=== PATIENT | female | born 1955 | race Asian ===

== ENCOUNTER 2017-02-10 13:15 | Inpatient (IN) | payer OTHER ==
[~2017-02-10] VITALS: Ht 165.1 cm; Wt 60.4 kg
[~2017-02-10 13:15] MED LIST: AMLO5TAB4 PO; AMOX1TAB12 PO; ASPI-621 PO; ATOR10TA PO; LEVO500T8 PO; SIMV10TA3 PO; ZOLP5TAB6 PO
[2017-02-10] MEDS ORDERED: MEROPENEM 1 GM in SODIUM CHLORIDE 0.9% 100 ML IV ONE (16:00)
[2017-02-10] MEDS ORDERED: HYDROcodone/APAP 5/325 TABLET PO PRN (16:30)
[2017-02-10] MEDS ORDERED: GUAIFENESIN/DM 200-20MG, 10ML UDC PO PRN (16:30)
[2017-02-10] MEDS ORDERED: DOCUSATE 100 MG CAPSULE PO PRN (16:30)
[2017-02-10] MEDS ORDERED: MORPHINE SULFATE 4 MG/ML, 1ML IVPush PRN (16:30)
[2017-02-10] MEDS ORDERED: ONDANSETRON 2MG/ML, 2ML IVP PRN (16:30)
[2017-02-10 16:32] LABS: BLOOD UREA NITROGEN 16 mg/dL (7-18)
[2017-02-10 16:35] LABS: HEMOGLOBIN 12.5 g/dL (11.7-16.4)
[2017-02-10] MEDS ORDERED: POTASSIUM CHLORIDE 20 MEQ TAB.ER.PRT PO ONE (17:00)
[2017-02-10] MEDS ORDERED: ENOXAPARIN 40 MG/0.4 ML ONE (17:01)
[2017-02-10] MEDS ORDERED: POTASSIUM CHLORIDE 20 MEQ TAB.ER.PRT ONE (17:01)
[2017-02-10] MEDS: ENOXAPARIN 40 MG/0.4 ML SQ SCH (17:07)
[2017-02-10 18:00] VITALS: BP 128/77
[2017-02-10] MEDS ORDERED: LORazepam 2 MG/ML, 1ML IVPush PRN (18:30)
[2017-02-10] MEDS: ACETAMINOPHEN 325 MG TABLET PO PRN (19:49)
[2017-02-10 20:00] VITALS: BP 128/77
[2017-02-10] MEDS ORDERED: ERTAPENEM 1 GM in SODIUM CHLORIDE 0.9% 50 ML IV SCH (20:00)
[2017-02-10 20:09] VITALS: BP 167/83
[2017-02-10] MEDS: AMLODIPINE 5 MG TABLET PO SCH (21:06)
[2017-02-10] MEDS: FAMOTIDINE 20 MG TABLET PO SCH (21:07)
[2017-02-10] MEDS: ZOLPIDEM 5MG TABLET PO SCH (21:07)
[2017-02-10] MEDS: SIMVASTATIN 10 MG TABLET PO SCH (21:07)
[2017-02-11 04:02] VITALS: BP 115/70
[2017-02-11 05:28] LABS: HEMOGLOBIN 11.3 g/dL (11.7-16.4)
[2017-02-11 05:41] LABS: BLOOD UREA NITROGEN 16 mg/dL (7-18)
[2017-02-11] MEDS ORDERED: POTASSIUM CHLORIDE 20 MEQ TAB.ER.PRT PO ONE (07:30)
[2017-02-11 07:43] VITALS: BP 123/79
[2017-02-11] MEDS: ASPIRIN 81 MG TABLET EC PO SCH (08:52)
[2017-02-11] MEDS: FAMOTIDINE 20 MG TABLET PO SCH ×2 (08:52→20:36)
[2017-02-11] MEDS: AMLODIPINE 5 MG TABLET PO SCH ×2 (08:52→20:36)
[2017-02-11] MEDS: PHENAZOPYRIDINE 200 MG TABLET PO SCH ×3 (09:00→20:36)
[2017-02-11 14:08] VITALS: BP 99/62
[2017-02-11] MEDS: POTASSIUM CHLORIDE 20 MEQ TAB.ER.PRT PO SCH (15:55)
[2017-02-11] MEDS: ENOXAPARIN 40 MG/0.4 ML SQ SCH (15:56)
[2017-02-11 19:26] VITALS: BP 123/75
[2017-02-11] MEDS ORDERED: ERTAPENEM 1 GM in SODIUM CHLORIDE 0.9% 50 ML IV ONE (20:00)
[2017-02-11] MEDS: SIMVASTATIN 10 MG TABLET PO SCH (20:35)
[2017-02-11] MEDS: ZOLPIDEM 5MG TABLET PO SCH (20:37)
[2017-02-12 01:59] VITALS: BP 103/64
[2017-02-12 06:01] LABS: BLOOD UREA NITROGEN 15 mg/dL (7-18)
[2017-02-12 07:59] VITALS: BP 131/77
[2017-02-12] MEDS: ASPIRIN 81 MG TABLET EC PO SCH (09:58)
[2017-02-12] MEDS: FAMOTIDINE 20 MG TABLET PO SCH ×2 (09:59→20:18)
[2017-02-12] MEDS: PHENAZOPYRIDINE 200 MG TABLET PO SCH ×3 (09:59→20:22)
[2017-02-12] MEDS: AMLODIPINE 5 MG TABLET PO SCH ×2 (09:59→20:18)
[2017-02-12] MEDS ORDERED: PICC FLUSH PROTOCOL XX SCH (11:30)
[2017-02-12 13:50] VITALS: BP 130/73
[2017-02-12] MEDS ORDERED: PHEN-494 PO (14:32)
[2017-02-12] MEDS ORDERED: ERTA1VIA IV (14:32)
[2017-02-12] MEDS: ENOXAPARIN 40 MG/0.4 ML SQ SCH (16:30)
[2017-02-12] MEDS: POTASSIUM CHLORIDE 20 MEQ TAB.ER.PRT PO SCH (18:25)
[2017-02-12] MEDS: ACETAMINOPHEN 325 MG TABLET PO PRN ×2 (18:37→22:51)
[2017-02-12 19:54] VITALS: BP 146/85
[2017-02-12] MEDS: ERTAPENEM 1 GM in SODIUM CHLORIDE 0.9% 50 ML IV SCH (20:18)
[2017-02-12] MEDS: SIMVASTATIN 10 MG TABLET PO SCH (20:18)
[2017-02-12] MEDS: ZOLPIDEM 5MG TABLET PO SCH (20:18)
[2017-02-13 01:16] VITALS: BP 117/66
[2017-02-13 08:06] VITALS: BP 136/83
[2017-02-13] MEDS: FAMOTIDINE 20 MG TABLET PO SCH ×2 (09:50→20:25)
[2017-02-13] MEDS: AMLODIPINE 5 MG TABLET PO SCH ×2 (09:51→20:25)
[2017-02-13] MEDS: ASPIRIN 81 MG TABLET EC PO SCH (09:51)
[2017-02-13] MEDS: PHENAZOPYRIDINE 200 MG TABLET PO SCH ×3 (09:51→20:25)
[2017-02-13 14:38] VITALS: BP 136/74
[2017-02-13] MEDS: ENOXAPARIN 40 MG/0.4 ML SQ SCH (14:39)
[2017-02-13] MEDS: POTASSIUM CHLORIDE 20 MEQ TAB.ER.PRT PO SCH (18:44)
[2017-02-13 19:57] VITALS: BP 128/79
[2017-02-13] MEDS: ZOLPIDEM 5MG TABLET PO SCH (20:24)
[2017-02-13] MEDS: ERTAPENEM 1 GM in SODIUM CHLORIDE 0.9% 50 ML IV SCH (20:24)
[2017-02-13] MEDS: SIMVASTATIN 10 MG TABLET PO SCH (20:25)
[2017-02-13] MEDS: ACETAMINOPHEN 325 MG TABLET PO PRN (22:04)
[2017-02-14 03:24] VITALS: BP 129/82
[2017-02-14 07:42] VITALS: BP 125/75
[2017-02-14] MEDS: AMLODIPINE 5 MG TABLET PO SCH (08:47)
[2017-02-14] MEDS: ASPIRIN 81 MG TABLET EC PO SCH (08:47)
[2017-02-14] MEDS: PHENAZOPYRIDINE 200 MG TABLET PO SCH (08:47)
[2017-02-14] MEDS: FAMOTIDINE 20 MG TABLET PO SCH (08:48)
[2017-02-14] MEDS: ACETAMINOPHEN 325 MG TABLET PO PRN (10:22)
[2017-02-14] MEDS ORDERED: ERTAPENEM 1 GM in SODIUM CHLORIDE 0.9% 50 ML IV SCH (13:00)
== END 2017-02-14 15:55 | disposition home or self-care (01) | DRG 872 ==
LOC: ED 16:14 → EDIP 16:15 → ED 17:20 → 3NE 18:05
PROVIDERS: ADMIT Hospitalist; ATTEND Hospitalist
PROC: 0T9B70Z Drainage of Bladder with Drainage Device, Via Natural or Artificial Opening (ICD-10-PCS; 2017-02-10)
PROC: 02HV33Z Insertion of Infusion Device into Superior Vena Cava, Percutaneous Approach (ICD-10-PCS; principal; 2017-02-12)
PROC: B5181ZA Fluoroscopy of Superior Vena Cava using Low Osmolar Contrast, Guidance (ICD-10-PCS; 2017-02-12)
PROC: B548ZZA Ultrasonography of Superior Vena Cava, Guidance (ICD-10-PCS; 2017-02-12)
DX: A41.9 Sepsis, unspecified organism (principal); N12 Tubulo-interstitial nephritis, not specified as acute or chronic; I10 Essential (primary) hypertension; E87.6 Hypokalemia; E78.5 Hyperlipidemia, unspecified; N32.89 Other specified disorders of bladder; B96.20 Unspecified Escherichia coli [E. coli] as the cause of diseases classified elsewhere; Z16.12 Extended spectrum beta lactamase (ESBL) resistance; Z85.3 Personal history of malignant neoplasm of breast; Z86.73 Personal history of transient ischemic attack (TIA), and cerebral infarction without residual deficits; Z90.12 Acquired absence of left breast and nipple
CPT/HCPCS: 36415; 36569; 76937; 77001; 80048; 80076; 81003; 82040; 83690; 85025; 85651; 86140; 99285; J1335; J1650; C1751

== ENCOUNTER 2017-06-06 07:46 | Emergency (ER) | payer OTHER ==
[~2017-06-06] VITALS: Ht 165.1 cm; Wt 64.0 kg
[~2017-06-06 07:46] MED LIST changes: +ERTA1VIA IV; +PHEN-494 PO
[2017-06-06] MEDS ORDERED: SODIUM CHLORIDE 0.9% 1,000 ML IV ONE (08:12)
[2017-06-06] MEDS ORDERED: LOSA25TA5 PO (08:14)
[2017-06-06] MEDS ORDERED: ASPIRIN 81 MG TABLET CHEW PO ONE (08:30)
[2017-06-06] MEDS ORDERED: SODIUM CHLORIDE FLUSH 10ML SYR IVF ONE (08:30)
[2017-06-06 08:37] VITALS: BP 109/55
[2017-06-06] MEDS ORDERED: ASPIRIN 81 MG TABLET CHEW ONE (08:42)
[2017-06-06 08:49] LABS: BLOOD UREA NITROGEN 7 mg/dL (7-18)
[2017-06-06 08:54] LABS: IS PT STATUS REG ER OR PRE ER? YES
== END 2017-06-06 11:28 | disposition home or self-care (01) ==
LOC: ED 08:04
DX: R53.1 Weakness (principal); E87.1 Hypo-osmolality and hyponatremia; I10 Essential (primary) hypertension; Z86.73 Personal history of transient ischemic attack (TIA), and cerebral infarction without residual deficits; E87.6 Hypokalemia
CPT/HCPCS: 36415; 71020; 80048; 81003; 82040; 84436; 84443; 84484; 85025; 93005; 96360; 96361; 99285; J7030

== ENCOUNTER 2017-07-08 02:37 | Emergency (ER) | payer OTHER ==
[~2017-07-08] VITALS: Ht 165.1 cm; Wt 65.9 kg
[~2017-07-08 02:37] MED LIST changes: +LOSA25TA5 PO
[2017-07-08] MEDS ORDERED: BENZ100C4 PO (03:01)
[2017-07-08 03:18] LABS: PATH.CAST-FLAG NOT PRESENT; SPERM-FLAG NOT PRESENT; SRC-FLAG NOT PRESENT; XTAL-FLAG NOT PRESENT; YLC-FLAG NOT PRESENT
[2017-07-08] MEDS ORDERED: DEXTROMETHORPHAN 30 MG/5 ML ORAL SOL PO PRN (03:30)
[2017-07-08 04:23] VITALS: BP 108/64
== END 2017-07-08 04:25 | disposition home or self-care (01) ==
LOC: ED 02:51
DX: J02.8 Acute pharyngitis due to other specified organisms (principal); B97.89 Other viral agents as the cause of diseases classified elsewhere; N30.00 Acute cystitis without hematuria; I10 Essential (primary) hypertension
CPT/HCPCS: 71020; 81001; 87086; 93005; 99285

== ENCOUNTER 2017-07-09 22:14 | Inpatient (IN) | payer OTHER ==
[~2017-07-09] VITALS: Ht 165.1 cm; Wt 64.2 kg
[~2017-07-09 22:14] MED LIST changes: +BENZ100C17 PO; -PHEN-494 PO; +PHEN-583 PO
[2017-07-09] MEDS ORDERED: ONDANSETRON 2MG/ML, 2ML ONE (23:09)
[2017-07-09 23:21] LABS: HEMATOCRIT 27.3 % (34.6-47.8); HEMOGLOBIN 9.1 g/dL (11.7-16.4); WHITE BLOOD COUNT 12.6 x10^3/uL (3.4-10)
[2017-07-09] MEDS ORDERED: SODIUM CHLORIDE 0.9% 1,000ML IVBOLUS ONE (23:30)
[2017-07-09] MEDS ORDERED: ONDANSETRON 2MG/ML, 2ML IVPush ONE (23:30)
[2017-07-09 23:34] LABS: BLOOD UREA NITROGEN 8 mg/dL (7-18)
[2017-07-09 23:39] LABS: ASPARTATE AMINO TRANSFERASE 36 U/L (15-37)
[2017-07-09 23:48] LABS: IS PT STATUS REG ER OR PRE ER? YES
[2017-07-10] MEDS ORDERED: OMNIPAQUE 350 MG/ML, 100ML BOTTLE ONE (00:43)
[2017-07-10 01:11] LABS: PATH.CAST-FLAG NOT PRESENT; SPERM-FLAG NOT PRESENT; SRC-FLAG NOT PRESENT; XTAL-FLAG NOT PRESENT; YLC-FLAG NOT PRESENT
[2017-07-10] MEDS ORDERED: ONDANSETRON 2MG/ML, 2ML IVPush PRN (02:00)
[2017-07-10] MEDS ORDERED: MORPHINE SULFATE 4 MG/ML, 1ML IVPush PRN (02:00)
[2017-07-10 03:12] VITALS: BP 107/68
[2017-07-10] MEDS ORDERED: PROMETHAZINE 25 MG/ML, 1ML IM PRN (05:30)
[2017-07-10] MEDS ORDERED: D5%-0.45NACL+KCL 20MEQ 1,000 ML IV SCH (05:30)
[2017-07-10] MEDS ORDERED: ONDANSETRON 2MG/ML, 2ML IV PRN (05:30)
[2017-07-10] MEDS ORDERED: LORazepam 2 MG/ML, 1ML IV PRN (05:30)
[2017-07-10] MEDS ORDERED: MORPHINE SULFATE 4 MG/ML, 1ML IV PRN (05:30)
[2017-07-10] MEDS ORDERED: hydrALAzine 20 MG/ML, 1ML IV PRN (05:30)
[2017-07-10] MEDS ORDERED: MAGNESIUM HYDROXIDE 8%, 30ML UDC PO PRN (05:30)
[2017-07-10 05:38] LABS: HEMATOCRIT 28.7 % (34.6-47.8); HEMOGLOBIN 9.4 g/dL (11.7-16.4); WHITE BLOOD COUNT 12.3 x10^3/uL (3.4-10)
[2017-07-10 05:53] LABS: BLOOD UREA NITROGEN 6 mg/dL (7-18); TOTAL IRON BINDING CAPACITY 125 mcg/dL (250-450)
[2017-07-10 05:57] LABS: FERRITIN 747.8 ng/mL (8-252)
[2017-07-10] MEDS ORDERED: GADOBUTROL 7.5 MMOL/7.5 ML PFS ONE (07:02)
[2017-07-10 07:30] VITALS: BP 105/67
[2017-07-10 10:19] LABS: POTASSIUM,URINE RANDOM 28 mmol/L
[2017-07-10] MEDS ORDERED: MIDAZOLAM 1 MG/ML, 5ML ONE (11:27)
[2017-07-10] MEDS ORDERED: FENTANYL PF 100 MCG/2ML ONE (11:28)
[2017-07-10] MEDS ORDERED: NALOXONE 1 MG/ML, 2ML ONE (11:28)
[2017-07-10] MEDS ORDERED: OMNIPAQUE 350 MG/ML, 75ML BOTTLE ONE (11:53)
[2017-07-10 13:45] VITALS: BP 100/42
[2017-07-10 18:23] VITALS: BP 101/63
[2017-07-10] MEDS: ACETAMINOPHEN 325 MG TABLET PO PRN (19:39)
[2017-07-11 00:07] VITALS: BP 102/49
[2017-07-11] MEDS ORDERED: D5%-0.45NACL+KCL 20MEQ 1,000 ML IV SCH (05:30)
[2017-07-11 07:03] VITALS: BP 107/62
[2017-07-11] MEDS: ENOXAPARIN 40 MG/0.4 ML SQ SCH (11:59)
[2017-07-11 13:52] VITALS: BP 114/83
[2017-07-11 20:58] VITALS: BP 104/65
[2017-07-12] MEDS: ZOLPIDEM 5MG TABLET PO PRN ×2 (01:24→22:01)
[2017-07-12] MEDS: BENZONATATE 100 MG CAPSULE PO PRN ×3 (01:42→22:01)
[2017-07-12 04:47] LABS: BLOOD UREA NITROGEN 9 mg/dL (7-18)
[2017-07-12 04:55] LABS: HEMATOCRIT 24.2 % (34.6-47.8); HEMOGLOBIN 8.1 g/dL (11.7-16.4); WHITE BLOOD COUNT 13.7 x10^3/uL (3.4-10)
[2017-07-12 07:41] VITALS: BP 111/72
[2017-07-12] MEDS ORDERED: POTASSIUM CHLORIDE 20 MEQ TAB.ER.PRT PO ONE (08:30)
[2017-07-12] MEDS: MULTIVIT.W/IRON, MINERALS ORAL SOL PO SCH (09:00)
[2017-07-12] MEDS: ENOXAPARIN 40 MG/0.4 ML SQ SCH (10:30)
[2017-07-12 12:57] VITALS: BP 122/72
[2017-07-12] MEDS ORDERED: ONDANSETRON 2MG/ML, 2ML IV PRN (19:30)
[2017-07-12] MEDS ORDERED: LORazepam 2 MG/ML, 1ML IV PRN (19:30)
[2017-07-12] MEDS ORDERED: MORPHINE SULFATE 4 MG/ML, 1ML IV PRN (19:30)
[2017-07-12] MEDS ORDERED: hydrALAzine 20 MG/ML, 1ML IV PRN (19:30)
[2017-07-12] MEDS ORDERED: PROMETHAZINE 25 MG/ML, 1ML IM PRN (19:30)
[2017-07-12] MEDS ORDERED: MAGNESIUM HYDROXIDE 8%, 30ML UDC PO PRN (19:30)
[2017-07-12 19:41] VITALS: BP 124/71
[2017-07-13 03:21] VITALS: BP 97/61
[2017-07-13 04:31] LABS: HEMOGLOBIN 8.3 g/dL (11.7-16.4); WHITE BLOOD COUNT 10.1 x10^3/uL (3.4-10)
[2017-07-13 04:35] LABS: BLOOD UREA NITROGEN 6 mg/dL (7-18)
[2017-07-13 06:52] VITALS: BP 122/69
[2017-07-13] MEDS: ENOXAPARIN 40 MG/0.4 ML SQ SCH (09:47)
[2017-07-13] MEDS: MULTIVIT.W/IRON, MINERALS ORAL SOL PO SCH (09:47)
[2017-07-13] MEDS ORDERED: POTASSIUM CHLORIDE 20 MEQ PACKET PO ONE (10:30)
[2017-07-13] MEDS: BENZONATATE 100 MG CAPSULE PO PRN ×2 (10:31→21:16)
[2017-07-13] MEDS: DOCUSATE 100 MG CAPSULE PO SCH ×2 (11:00→21:00)
[2017-07-13] MEDS: DEXTROMETHORPHAN 30 MG/5 ML ORAL SOL PO PRN ×2 (11:32→23:27)
[2017-07-13] MEDS: PANTOPROZOLE 40MG TABLET PO SCH (11:34)
[2017-07-13] MEDS ORDERED: OMNIPAQUE 350 MG/ML, 100ML BOTTLE ONE (17:11)
[2017-07-13 17:50] VITALS: BP 122/76
[2017-07-13] MEDS: ZOLPIDEM 5MG TABLET PO PRN (21:16)
[2017-07-14 01:50] VITALS: BP 117/71
[2017-07-14 04:59] LABS: HEMATOCRIT 23.8 % (34.6-47.8); HEMOGLOBIN 8.1 g/dL (11.7-16.4); WHITE BLOOD COUNT 10.4 x10^3/uL (3.4-10)
[2017-07-14 05:16] LABS: BLOOD UREA NITROGEN 7 mg/dL (7-18)
[2017-07-14 07:05] VITALS: BP 108/70
[2017-07-14] MEDS ORDERED: SODIUM CHLORIDE 1 GM TABLET PO SCH (09:00)
[2017-07-14] MEDS: PANTOPROZOLE 40MG TABLET PO SCH (09:29)
[2017-07-14] MEDS: MULTIVIT.W/IRON, MINERALS ORAL SOL PO SCH (09:29)
[2017-07-14] MEDS: DOCUSATE 100 MG CAPSULE PO SCH ×2 (09:31→22:01)
[2017-07-14] MEDS: ENOXAPARIN 40 MG/0.4 ML SQ SCH (10:46)
[2017-07-14] MEDS: DEXTROMETHORPHAN 30 MG/5 ML ORAL SOL PO PRN ×2 (11:06→23:43)
[2017-07-14 13:48] VITALS: BP 126/75
[2017-07-14 19:14] VITALS: BP 100/64
[2017-07-14] MEDS: BENZONATATE 100 MG CAPSULE PO PRN (22:02)
[2017-07-14] MEDS: ZOLPIDEM 5MG TABLET PO PRN (23:48)
[2017-07-15] VITALS (8 sets, daily range): BP systolic 93–121; BP diastolic 53–67
[2017-07-15 05:21] LABS: BLOOD UREA NITROGEN 11 mg/dL (7-18); HEMOGLOBIN 7.6 g/dL (11.7-16.4); WHITE BLOOD COUNT 13.3 x10^3/uL (3.4-10)
[2017-07-15 05:22] LABS: HEMATOCRIT 22.3 % (34.6-47.8)
[2017-07-15] MEDS: DOCUSATE 100 MG CAPSULE PO SCH ×2 (09:00→20:17)
[2017-07-15] MEDS: PANTOPROZOLE 40MG TABLET PO SCH (09:18)
[2017-07-15] MEDS: MEGESTROL ORAL.SUSP 40 MG/ML PO SCH (09:18)
[2017-07-15] MEDS: BENZONATATE 100 MG CAPSULE PO PRN ×2 (09:19→20:16)
[2017-07-15] MEDS: MULTIVIT.W/IRON, MINERALS ORAL SOL PO SCH (09:20)
[2017-07-15] MEDS ORDERED: ACETAMINOPHEN 325 MG TABLET PO ONE (10:00)
[2017-07-15] MEDS ORDERED: DIPHENHYDRAMINE 50 MG/ML, 1ML IVPush ONE (10:00)
[2017-07-15] MEDS: ENOXAPARIN 40 MG/0.4 ML SQ SCH (10:25)
[2017-07-15] MEDS: DEXTROMETHORPHAN 30 MG/5 ML ORAL SOL PO PRN (13:07)
[2017-07-15] MEDS: ZOLPIDEM 5MG TABLET PO PRN (23:20)
[2017-07-16] MEDS: DEXTROMETHORPHAN 30 MG/5 ML ORAL SOL PO PRN ×2 (00:34→13:10)
[2017-07-16 01:15] VITALS: BP 131/81
[2017-07-16 07:13] LABS: HEMATOCRIT 30.2 % (34.6-47.8); HEMOGLOBIN 10.2 g/dL (11.7-16.4)
[2017-07-16 07:17] LABS: BLOOD UREA NITROGEN 12 mg/dL (7-18)
[2017-07-16 07:19] LABS: FERRITIN 1278.7 ng/mL (8-252)
[2017-07-16 07:57] VITALS: BP 101/63
[2017-07-16] MEDS: PANTOPROZOLE 40MG TABLET PO SCH (08:01)
[2017-07-16] MEDS: MULTIVIT.W/IRON, MINERALS ORAL SOL PO SCH (08:01)
[2017-07-16] MEDS: DOCUSATE 100 MG CAPSULE PO SCH ×2 (08:01→21:45)
[2017-07-16] MEDS: MEGESTROL ORAL.SUSP 40 MG/ML PO SCH (08:02)
[2017-07-16 08:09] LABS: ANISOCYTOSIS 1+; POIKILOCYTOSIS 1+
[2017-07-16] MEDS: ENOXAPARIN 40 MG/0.4 ML SQ SCH ×2 (10:30→10:49)
[2017-07-16] MEDS: BENZONATATE 100 MG CAPSULE PO PRN ×2 (10:49→21:45)
[2017-07-16 14:00] VITALS: BP 132/60
[2017-07-16] MEDS: FERROUS SULFATE 325 MG TABLET PO SCH (17:52)
[2017-07-16 19:00] VITALS: BP 113/74
[2017-07-17] MEDS: ZOLPIDEM 5MG TABLET PO PRN (00:27)
[2017-07-17] MEDS: DEXTROMETHORPHAN 30 MG/5 ML ORAL SOL PO PRN ×2 (00:27→12:56)
[2017-07-17 03:18] VITALS: BP 107/68
[2017-07-17 06:29] LABS: ASPARTATE AMINO TRANSFERASE 23 U/L (15-37); BLOOD UREA NITROGEN 10 mg/dL (7-18); LACTATE DEHYDROGENASE 445 U/L (84-246)
[2017-07-17 06:35] LABS: HIV 1&2 ANTIBODY SCREEN Nonreactive (Nonreactive); HIV-1 p24 ANTIGEN Nonreactive (Nonreactive)
[2017-07-17 07:01] VITALS: BP 104/70
[2017-07-17 08:10] LABS: OCCBLD OBC PASS
[2017-07-17] MEDS ORDERED: LIDOCAINE 1%, 20ML ONE (09:29)
[2017-07-17] MEDS ORDERED: NALOXONE 1 MG/ML, 2ML ONE (09:40)
[2017-07-17] MEDS ORDERED: MIDAZOLAM 1 MG/ML, 5ML ONE (09:40)
[2017-07-17] MEDS ORDERED: FENTANYL PF 100 MCG/2ML ONE (09:40)
[2017-07-17] MEDS ORDERED: FLUMAZENIL 0.1 MG/1 ML, 5ML ONE (09:41)
[2017-07-17] MEDS: DOCUSATE 100 MG CAPSULE PO SCH ×2 (10:51→21:36)
[2017-07-17] MEDS: FERROUS SULFATE 325 MG TABLET PO SCH (10:51)
[2017-07-17] MEDS: BENZONATATE 100 MG CAPSULE PO PRN ×2 (10:51→21:36)
[2017-07-17] MEDS: PANTOPROZOLE 40MG TABLET PO SCH (10:52)
[2017-07-17] MEDS: MEGESTROL ORAL.SUSP 40 MG/ML PO SCH (10:53)
[2017-07-17] MEDS: MULTIVIT.W/IRON, MINERALS ORAL SOL PO SCH (10:53)
[2017-07-17] MEDS: ENOXAPARIN 40 MG/0.4 ML SQ SCH (10:53)
[2017-07-17 13:11] VITALS: BP 115/57
[2017-07-17 20:00] VITALS: BP 109/72
[2017-07-17] MEDS: SIMVASTATIN 10 MG TABLET PO SCH (21:36)
[2017-07-18] MEDS: ZOLPIDEM 5MG TABLET PO PRN ×2 (00:07→23:19)
[2017-07-18] MEDS: DEXTROMETHORPHAN 30 MG/5 ML ORAL SOL PO PRN ×3 (00:08→23:19)
[2017-07-18 04:41] VITALS: BP 114/73
[2017-07-18 04:45] LABS: BLOOD UREA NITROGEN 12 mg/dL (7-18)
[2017-07-18 04:46] LABS: HEMATOCRIT 27.9 % (34.6-47.8); HEMOGLOBIN 9.5 g/dL (11.7-16.4); WHITE BLOOD COUNT 12.6 x10^3/uL (3.4-10)
[2017-07-18 07:07] LABS: HEPATITIS B SURFACE AG SCREEN Negative (Negative)
[2017-07-18 08:17] VITALS: BP 106/54
[2017-07-18] MEDS ORDERED: ASPIRIN 81 MG TABLET EC PO SCH (09:00)
[2017-07-18] MEDS: MULTIVIT.W/IRON, MINERALS ORAL SOL PO SCH (09:00)
[2017-07-18] MEDS: DOCUSATE 100 MG CAPSULE PO SCH (09:00)
[2017-07-18] MEDS ORDERED: MAGNESIUM SULFATE PMX 2GM/50ML 50 ML IV ONE (09:30)
[2017-07-18] MEDS: BENZONATATE 100 MG CAPSULE PO PRN ×2 (10:17→21:09)
[2017-07-18] MEDS: FERROUS SULFATE 325 MG TABLET PO SCH (10:17)
[2017-07-18] MEDS: MEGESTROL ORAL.SUSP 40 MG/ML PO SCH (10:17)
[2017-07-18] MEDS: PANTOPROZOLE 40MG TABLET PO SCH (10:17)
[2017-07-18] MEDS: ENOXAPARIN 40 MG/0.4 ML SQ SCH (10:30)
[2017-07-18] MEDS ORDERED: LIDOCAINE 1%, 20ML ONE (11:02)
[2017-07-18 13:30] VITALS: BP 123/82
[2017-07-18] MEDS ORDERED: DOCUSATE 100 MG CAPSULE PO PRN (16:30)
[2017-07-18 20:03] VITALS: BP 126/81
[2017-07-18] MEDS: SIMVASTATIN 10 MG TABLET PO SCH (21:09)
[2017-07-19 01:23] VITALS: BP 119/57
[2017-07-19 05:14] LABS: HEMATOCRIT 27.8 % (34.6-47.8); HEMOGLOBIN 9.1 g/dL (11.7-16.4); WHITE BLOOD COUNT 13.7 x10^3/uL (3.4-10)
[2017-07-19 05:26] LABS: BLOOD UREA NITROGEN 12 mg/dL (7-18)
[2017-07-19 07:14] VITALS: BP 111/70
[2017-07-19] MEDS: PANTOPROZOLE 40MG TABLET PO SCH (09:01)
[2017-07-19] MEDS: FERROUS SULFATE 325 MG TABLET PO SCH (09:01)
[2017-07-19] MEDS: MEGESTROL ORAL.SUSP 40 MG/ML PO SCH (09:01)
[2017-07-19] MEDS: MULTIVITAMIN 1 TABLET PO SCH (09:01)
[2017-07-19] MEDS: BENZONATATE 100 MG CAPSULE PO PRN ×2 (09:01→21:21)
[2017-07-19] MEDS: ENOXAPARIN 40 MG/0.4 ML SQ SCH (10:30)
[2017-07-19] MEDS: DEXTROMETHORPHAN 30 MG/5 ML ORAL SOL PO PRN ×2 (11:55→23:25)
[2017-07-19 13:25] VITALS: BP 144/51
[2017-07-19] MEDS ORDERED: DOCUSATE 100 MG CAPSULE PO PRN (15:30)
[2017-07-19] MEDS ORDERED: hydrALAzine 20 MG/ML, 1ML IV PRN (15:30)
[2017-07-19] MEDS ORDERED: PROMETHAZINE 25 MG/ML, 1ML IM PRN (15:30)
[2017-07-19] MEDS ORDERED: ONDANSETRON 2MG/ML, 2ML IV PRN (15:30)
[2017-07-19 20:00] VITALS: BP 140/80
[2017-07-19 21:18] VITALS: BP 139/73
[2017-07-19] MEDS: SIMVASTATIN 10 MG TABLET PO SCH (21:21)
[2017-07-19] MEDS: ZOLPIDEM 5MG TABLET PO PRN (23:25)
[2017-07-20 02:00] VITALS: BP 121/71
[2017-07-20 04:21] LABS: BLOOD UREA NITROGEN 11 mg/dL (7-18)
[2017-07-20 07:37] VITALS: BP 124/74
[2017-07-20] MEDS: NYSTATIN 500,000 UNITS/5 ML UDC PO SCH ×4 (07:48→21:49)
[2017-07-20] MEDS: PANTOPROZOLE 40MG TABLET PO SCH (07:48)
[2017-07-20] MEDS: BENZONATATE 100 MG CAPSULE PO PRN ×2 (09:25→21:49)
[2017-07-20] MEDS: FERROUS SULFATE 325 MG TABLET PO SCH (09:25)
[2017-07-20] MEDS: MEGESTROL ORAL.SUSP 40 MG/ML PO SCH (09:25)
[2017-07-20] MEDS: MULTIVITAMIN 1 TABLET PO SCH (09:25)
[2017-07-20] MEDS: ENOXAPARIN 40 MG/0.4 ML SQ SCH (11:10)
[2017-07-20] MEDS: DEXTROMETHORPHAN 30 MG/5 ML ORAL SOL PO PRN ×2 (12:18→23:51)
[2017-07-20 15:08] VITALS: BP 139/72
[2017-07-20] MEDS ORDERED: OMNIPAQUE 350 MG/ML, 100ML BOTTLE ONE (18:33)
[2017-07-20] MEDS: SIMVASTATIN 10 MG TABLET PO SCH (21:49)
[2017-07-20 23:44] VITALS: BP 137/65
[2017-07-20] MEDS: ZOLPIDEM 5MG TABLET PO PRN (23:51)
[2017-07-21 03:18] VITALS: BP 122/72
[2017-07-21 03:53] LABS: BLOOD UREA NITROGEN 10 mg/dL (7-18)
[2017-07-21 07:08] VITALS: BP 110/76
[2017-07-21] MEDS: MULTIVITAMIN 1 TABLET PO SCH (09:08)
[2017-07-21] MEDS: PANTOPROZOLE 40MG TABLET PO SCH (09:08)
[2017-07-21] MEDS: NYSTATIN 500,000 UNITS/5 ML UDC PO SCH ×4 (09:08→20:58)
[2017-07-21] MEDS: FERROUS SULFATE 325 MG TABLET PO SCH (09:09)
[2017-07-21] MEDS: MEGESTROL ORAL.SUSP 40 MG/ML PO SCH (09:09)
[2017-07-21] MEDS: ENOXAPARIN 40 MG/0.4 ML SQ SCH (10:30)
[2017-07-21] MEDS ORDERED: METHOTREXATE/PF 2ML 12 MG in SODIUM CHLORIDE 0.9% 5.52 ML IT ONE (11:00)
[2017-07-21] MEDS: BENZONATATE 100 MG CAPSULE PO PRN ×2 (12:56→21:08)
[2017-07-21] MEDS: DEXTROMETHORPHAN 30 MG/5 ML ORAL SOL PO PRN (13:23)
[2017-07-21 13:34] VITALS: BP 129/73
[2017-07-21] MEDS ORDERED: LIDOCAINE 1%, 20ML ONE (16:41)
[2017-07-21 18:14] LABS: CYTOLOGY BODY FLUID RECD INTO PATHOLOGY; CYTOLOGY BODY FLUID SOURCE CEREBROSPINAL FLUID
[2017-07-21 19:35] VITALS: BP 136/75
[2017-07-21] MEDS: SIMVASTATIN 10 MG TABLET PO SCH (20:58)
[2017-07-22] MEDS: DEXTROMETHORPHAN 30 MG/5 ML ORAL SOL PO PRN ×2 (00:29→23:31)
[2017-07-22 01:16] VITALS: BP 121/74
[2017-07-22] MEDS: ZOLPIDEM 5MG TABLET PO PRN (01:16)
[2017-07-22] MEDS: NYSTATIN 500,000 UNITS/5 ML UDC PO SCH ×4 (06:03→20:52)
[2017-07-22 06:20] LABS: HEMATOCRIT 26.2 % (34.6-47.8); HEMOGLOBIN 8.9 g/dL (11.7-16.4); WHITE BLOOD COUNT 13.6 x10^3/uL (3.4-10)
[2017-07-22 06:32] LABS: ASPARTATE AMINO TRANSFERASE 25 U/L (15-37); BLOOD UREA NITROGEN 11 mg/dL (7-18)
[2017-07-22 07:40] VITALS: BP 118/71
[2017-07-22] MEDS: MULTIVITAMIN 1 TABLET PO SCH (08:08)
[2017-07-22] MEDS: PANTOPROZOLE 40MG TABLET PO SCH (08:08)
[2017-07-22] MEDS: ALLOPURINOL 300 MG TABLET PO SCH (08:08)
[2017-07-22] MEDS: FERROUS SULFATE 325 MG TABLET PO SCH (08:08)
[2017-07-22] MEDS: MEGESTROL ORAL.SUSP 40 MG/ML PO SCH (08:09)
[2017-07-22] MEDS: BENZONATATE 100 MG CAPSULE PO PRN ×2 (09:27→20:52)
[2017-07-22] MEDS ORDERED: FAMOTIDINE 20 MG/2 ML IVPush ONE (10:30)
[2017-07-22] MEDS ORDERED: DEXAMETHASONE 12 MG in SODIUM CHLORIDE 0.9% 50 ML IV ONE (11:00)
[2017-07-22] MEDS ORDERED: DIPHENHYDRAMINE 50 MG/ML, 1ML IVPush ONE (11:00)
[2017-07-22] MEDS ORDERED: ACETAMINOPHEN 325 MG TABLET PO ONE (11:00)
[2017-07-22] MEDS: ENOXAPARIN 40 MG/0.4 ML SQ SCH (11:17)
[2017-07-22] MEDS ORDERED: RITUXIMAB IV ONE (11:30)
[2017-07-22] MEDS ORDERED: SODIUM CHLORIDE 0.9% IV ONE (11:30)
[2017-07-22 14:00] VITALS: BP 106/67
[2017-07-22 20:45] VITALS: BP 125/69
[2017-07-22] MEDS: SIMVASTATIN 10 MG TABLET PO SCH (20:52)
[2017-07-23 00:32] VITALS: BP 135/80
[2017-07-23] MEDS: NYSTATIN 500,000 UNITS/5 ML UDC PO SCH ×4 (05:35→21:25)
[2017-07-23 06:10] LABS: ASPARTATE AMINO TRANSFERASE 39 U/L (15-37); BLOOD UREA NITROGEN 15 mg/dL (7-18)
[2017-07-23 07:30] VITALS: BP 112/52
[2017-07-23 09:11] LABS: HEMATOCRIT 27.2 % (34.6-47.8); HEMOGLOBIN 9.1 g/dL (11.7-16.4); WHITE BLOOD COUNT 15.1 x10^3/uL (3.4-10)
[2017-07-23 09:12] LABS: DIFF TOTAL CELLS COUNTED 100 CELL DIFF
[2017-07-23 09:14] LABS: VERIFY COUNTS? YES
[2017-07-23] MEDS: MULTIVITAMIN 1 TABLET PO SCH (09:56)
[2017-07-23] MEDS: PANTOPROZOLE 40MG TABLET PO SCH (09:56)
[2017-07-23] MEDS: MEGESTROL ORAL.SUSP 40 MG/ML PO SCH (09:56)
[2017-07-23] MEDS: FERROUS SULFATE 325 MG TABLET PO SCH (09:56)
[2017-07-23] MEDS: ALLOPURINOL 300 MG TABLET PO SCH (09:56)
[2017-07-23] MEDS ORDERED: FOSAPREPITANT 150 MG in SODIUM CHLORIDE 0.9% 145 ML IV ONE (10:30)
[2017-07-23] MEDS: ONDANSETRON 16 MG in SODIUM CHLORIDE 0.9% 50 ML IVPB ONE ×2 (10:54→11:55)
[2017-07-23] MEDS: predniSONE 50MG TABLET PO SCH (10:55)
[2017-07-23] MEDS: ENOXAPARIN 40 MG/0.4 ML SQ SCH (10:55)
[2017-07-23] MEDS ORDERED: CYCLOPHOSPHAMIDE IV ONE (11:00)
[2017-07-23] MEDS ORDERED: SODIUM CHLORIDE 0.9% IV ONE ×2 (11:00→13:00)
[2017-07-23] MEDS ORDERED: DOXORUBICIN IVPush ONE (12:00)
[2017-07-23] MEDS ORDERED: VINCRISTINE IV ONE (13:00)
[2017-07-23] MEDS: DEXTROMETHORPHAN 30 MG/5 ML ORAL SOL PO PRN (13:50)
[2017-07-23] MEDS: SODIUM CHLORIDE 0.45% 1,000 ML IV SCH (14:01)
[2017-07-23 14:10] VITALS: BP 118/84
[2017-07-23] MEDS: BENZONATATE 100 MG CAPSULE PO PRN (15:12)
[2017-07-23 18:58] VITALS: BP 149/84
[2017-07-23] MEDS: SIMVASTATIN 10 MG TABLET PO SCH (21:25)
[2017-07-24] MEDS: SODIUM CHLORIDE 0.45% 1,000 ML IV SCH (00:56)
[2017-07-24 01:25] VITALS: BP 156/78
[2017-07-24] MEDS: DEXTROMETHORPHAN 30 MG/5 ML ORAL SOL PO PRN (02:21)
[2017-07-24] MEDS: BENZONATATE 100 MG CAPSULE PO PRN ×2 (02:21→12:37)
[2017-07-24] MEDS: NYSTATIN 500,000 UNITS/5 ML UDC PO SCH ×4 (05:45→21:23)
[2017-07-24 06:30] LABS: ASPARTATE AMINO TRANSFERASE 69 U/L (15-37); BLOOD UREA NITROGEN 17 mg/dL (7-18)
[2017-07-24 07:35] VITALS: BP 133/74
[2017-07-24] MEDS: MULTIVITAMIN 1 TABLET PO SCH (07:51)
[2017-07-24] MEDS: PANTOPROZOLE 40MG TABLET PO SCH (07:51)
[2017-07-24] MEDS: FERROUS SULFATE 325 MG TABLET PO SCH (07:51)
[2017-07-24] MEDS: ALLOPURINOL 300 MG TABLET PO SCH (07:52)
[2017-07-24] MEDS: MEGESTROL ORAL.SUSP 40 MG/ML PO SCH (07:52)
[2017-07-24] MEDS: ENOXAPARIN 40 MG/0.4 ML SQ SCH (10:30)
[2017-07-24] MEDS: predniSONE 50MG TABLET PO SCH (10:31)
[2017-07-24 12:40] VITALS: BP 142/79
[2017-07-24] MEDS: GUAIFENESIN/DM 100-10MG, 5ML UDC PO PRN (15:55)
[2017-07-24] MEDS: DOCUSATE 100 MG CAPSULE PO SCH ×2 (18:37→21:00)
[2017-07-24 19:42] VITALS: BP 154/87
[2017-07-24] MEDS: SIMVASTATIN 10 MG TABLET PO SCH (21:23)
[2017-07-25 00:38] VITALS: BP 149/89
[2017-07-25] MEDS: GUAIFENESIN/DM 100-10MG, 5ML UDC PO PRN (02:55)
[2017-07-25] MEDS: BENZONATATE 100 MG CAPSULE PO PRN ×2 (02:55→23:30)
[2017-07-25] MEDS: NYSTATIN 500,000 UNITS/5 ML UDC PO SCH ×4 (05:06→21:04)
[2017-07-25 06:14] LABS: ASPARTATE AMINO TRANSFERASE 54 U/L (15-37); BLOOD UREA NITROGEN 20 mg/dL (7-18)
[2017-07-25] MEDS: PANTOPROZOLE 40MG TABLET PO SCH (07:54)
[2017-07-25 08:30] VITALS: BP 152/88
[2017-07-25] MEDS: MULTIVITAMIN 1 TABLET PO SCH (09:41)
[2017-07-25] MEDS: DOCUSATE 100 MG CAPSULE PO SCH ×2 (09:41→21:04)
[2017-07-25] MEDS: ALLOPURINOL 300 MG TABLET PO SCH (09:41)
[2017-07-25] MEDS: FERROUS SULFATE 325 MG TABLET PO SCH (09:42)
[2017-07-25] MEDS: MEGESTROL ORAL.SUSP 40 MG/ML PO SCH (09:42)
[2017-07-25] MEDS: predniSONE 50MG TABLET PO SCH (09:44)
[2017-07-25] MEDS: ENOXAPARIN 40 MG/0.4 ML SQ SCH (09:44)
[2017-07-25 12:43] VITALS: BP 148/84
[2017-07-25] MEDS: ACETAMINOPHEN 325 MG TABLET PO PRN (12:48)
[2017-07-25 20:03] VITALS: BP 135/81
[2017-07-25] MEDS: SIMVASTATIN 10 MG TABLET PO SCH (21:04)
[2017-07-26 01:06] VITALS: BP 163/114
[2017-07-26 03:42] VITALS: BP 151/86
[2017-07-26 05:32] LABS: HEMATOCRIT 24.4 % (34.6-47.8); HEMOGLOBIN 8.2 g/dL (11.7-16.4); WHITE BLOOD COUNT 6.8 x10^3/uL (3.4-10)
[2017-07-26 05:40] LABS: ASPARTATE AMINO TRANSFERASE 39 U/L (15-37); BLOOD UREA NITROGEN 23 mg/dL (7-18)
[2017-07-26] MEDS: NYSTATIN 500,000 UNITS/5 ML UDC PO SCH ×2 (05:56→11:03)
[2017-07-26 08:16] VITALS: BP 150/98
[2017-07-26] MEDS ORDERED: TBO-FILGRASTIM 300 MCG/0.5 ML SQ SCH (09:00)
[2017-07-26] MEDS: PANTOPROZOLE 40MG TABLET PO SCH (10:09)
[2017-07-26] MEDS: FERROUS SULFATE 325 MG TABLET PO SCH (10:09)
[2017-07-26] MEDS: DOCUSATE 100 MG CAPSULE PO SCH (10:09)
[2017-07-26] MEDS: ALLOPURINOL 300 MG TABLET PO SCH (10:10)
[2017-07-26] MEDS: MULTIVITAMIN 1 TABLET PO SCH (10:10)
[2017-07-26] MEDS: MEGESTROL ORAL.SUSP 40 MG/ML PO SCH (10:10)
[2017-07-26] MEDS: ENOXAPARIN 40 MG/0.4 ML SQ SCH (11:03)
[2017-07-26] MEDS: predniSONE 50MG TABLET PO SCH (11:03)
[2017-07-26] MEDS ORDERED: BENZ100C17 PO (11:20)
[2017-07-26] MEDS ORDERED: PRED50TA PO (11:20)
[2017-07-26] MEDS ORDERED: MULT1TAB60 PO (11:20)
[2017-07-26] MEDS ORDERED: FERR-36 PO (11:20)
[2017-07-26] MEDS ORDERED: TRAM50TA2 PO (11:20)
[2017-07-26] MEDS ORDERED: DOCU-131 PO (11:20)
[2017-07-26] MEDS ORDERED: MEGE400O2 PO (11:20)
[2017-07-26] MEDS ORDERED: ALLO300T PO (11:20)
[2017-07-26] MEDS ORDERED: TBO-300S SQ (11:20)
[2017-07-26 13:02] VITALS: BP 138/81
== END 2017-07-26 13:55 | disposition home or self-care (01) | DRG 823 ==
LOC: ED 22:35 → EDIP 07-10 01:53 → 4NOR 07-10 05:08 → 3NW 07-11 13:26
PROC: 07BD3ZX Excision of Aortic Lymphatic, Percutaneous Approach, Diagnostic (ICD-10-PCS; principal; 2017-07-10)
PROC: 0QB33ZX Excision of Left Pelvic Bone, Percutaneous Approach, Diagnostic (ICD-10-PCS; 2017-07-17)
PROC: 07DR3ZX Extraction of Iliac Bone Marrow, Percutaneous Approach, Diagnostic (ICD-10-PCS; 2017-07-17)
PROC: 02HV33Z Insertion of Infusion Device into Superior Vena Cava, Percutaneous Approach (ICD-10-PCS; 2017-07-18)
PROC: B5181ZA Fluoroscopy of Superior Vena Cava using Low Osmolar Contrast, Guidance (ICD-10-PCS; 2017-07-18)
PROC: 00JU3ZZ Inspection of Spinal Canal, Percutaneous Approach (ICD-10-PCS; 2017-07-21)
PROC: 009U3ZX Drainage of Spinal Canal, Percutaneous Approach, Diagnostic (ICD-10-PCS; 2017-07-22)
PROC: B01B1ZZ Fluoroscopy of Spinal Cord using Low Osmolar Contrast (ICD-10-PCS; 2017-07-22)
PROC: 30233N1 Transfusion of Nonautologous Red Blood Cells into Peripheral Vein, Percutaneous Approach (ICD-10-PCS; 2017-07-22)
PROC: 3E04305 Introduction of Other Antineoplastic into Central Vein, Percutaneous Approach (ICD-10-PCS; 2017-07-22)
DX: C83.30 Diffuse large B-cell lymphoma, unspecified site (principal); E43 Unspecified severe protein-calorie malnutrition; I71.01 Dissection of thoracic aorta; D69.59 Other secondary thrombocytopenia; E22.2 Syndrome of inappropriate secretion of antidiuretic hormone; I11.9 Hypertensive heart disease without heart failure; K76.0 Fatty (change of) liver, not elsewhere classified; E83.52 Hypercalcemia; N39.0 Urinary tract infection, site not specified; D50.9 Iron deficiency anemia, unspecified; D63.8 Anemia in other chronic diseases classified elsewhere; E78.5 Hyperlipidemia, unspecified; E87.6 Hypokalemia; K59.00 Constipation, unspecified; F51.04 Psychophysiologic insomnia; R62.7 Adult failure to thrive; T38.0X5A Adverse effect of glucocorticoids and synthetic analogues, initial encounter; Z86.73 Personal history of transient ischemic attack (TIA), and cerebral infarction without residual deficits; Z68.23 Body mass index [BMI] 23.0-23.9, adult; Z85.3 Personal history of malignant neoplasm of breast; Z90.12 Acquired absence of left breast and nipple; Z92.3 Personal history of irradiation
CPT/HCPCS: 36415; 36569; 49180; 62270; 70553; 71010; 71260; 71275; 74177; 76937; 77001; 77002; 77012; 78306; 80048; 80053; 80074; 81001; 81003; 82248; 82272; 82436; 82728; 83540; 83550; 83605; 83615; 83690; 83735; 83935; 84133; 84145; 84295; 84300; 84484; 84550; 85025; 85045; 85097; 85379; 85610; 86703; 86704; 86706; 86850; 86900; 86923; 87040; 87340; 87899; 88108; 88237; 88264; 88280; 88305; 88311; 88313; 88341; 88342; 88360; 89051; 93005; 93306; 96361; 96374; 99156; 99157; A9585; G0364; J1100; J1453; J1650; J2250; J2405; J3010; J3490; J9000; J9070; J9250; J9370; Q9967; A9503; C1751; C9898; G0435; G0461; J1200; J1447; J2060; J2310; J3475; J3480; J7030; J7050; J7512; J9310; P9016; S0028

== ENCOUNTER 2017-08-19 10:52 | Day surgery (SDC) | payer OTHER ==
[~2017-08-19] VITALS: Ht 165.1 cm; Wt 67.6 kg
[~2017-08-19 10:52] MED LIST changes: +ALLO300T PO; +DOCU-131 PO; +FERR-36 PO; +MEGE400O2 PO; +MULT1TAB60 PO; +PRED50TA PO; +TBO-300S SQ; +TRAM50TA2 PO
[2017-08-19 11:23] VITALS: BP 160/91
[2017-08-19] MEDS ORDERED: SODIUM CHLORIDE 0.9% 1,000 ML IV SCH (11:23)
[2017-08-19] MEDS ORDERED: CEFAZOLIN PMX 1GM/50ML 50 ML IV ONE (11:30)
[2017-08-19] MEDS ORDERED: LIDOCAINE 1%, 2ML ONE (11:40)
[2017-08-19] MEDS ORDERED: MEGE400O2 PO (11:41)
[2017-08-19] MEDS ORDERED: FERR325T18 PO (11:41)
[2017-08-19] MEDS ORDERED: MULT1TAB60 PO (11:41)
[2017-08-19] MEDS ORDERED: ALLO300T PO (11:41)
[2017-08-19] MEDS ORDERED: METHOTREXATE/PF 2ML 12 MG in SODIUM CHLORIDE 0.9% 5.52 ML IT ONE (12:00)
[2017-08-19] MEDS ORDERED: FENTANYL PF 100 MCG/2ML ONE (12:01)
[2017-08-19] MEDS ORDERED: MIDAZOLAM 1 MG/ML, 5ML ONE (12:01)
[2017-08-19] MEDS ORDERED: FLUMAZENIL 0.1 MG/1 ML, 5ML ONE (12:02)
[2017-08-19] MEDS ORDERED: NALOXONE 1 MG/ML, 2ML ONE (12:02)
[2017-08-19] MEDS ORDERED: LIDOCAINE 1%, 20ML ONE ×2 (12:11→12:24)
[2017-08-19 13:26] LABS: CYTOLOGY BODY FLUID RECD INTO PATHOLOGY; CYTOLOGY BODY FLUID SOURCE CEREBROSPINAL FLUID
== END 2017-08-19 15:45 ==
LOC: OUT 10:52
PROVIDERS: ATTEND Internal Medicine Hematology & Oncology
DX: Z45.2 Encounter for adjustment and management of vascular access device (principal); C85.90 Non-Hodgkin lymphoma, unspecified, unspecified site; D64.9 Anemia, unspecified; I10 Essential (primary) hypertension; Z90.12 Acquired absence of left breast and nipple; Z98.890 Other specified postprocedural states
CPT/HCPCS: 36561; 62270; 76937; 77001; 88108; 99156; 99157; C1788; C1894; J0690; J1642; J2250; J3010; J3490; J7030; J9250; 77002; J2310

== ENCOUNTER 2017-09-09 07:38 | Day surgery (SDC) | payer OTHER ==
[~2017-09-09] VITALS: Ht 165.1 cm; Wt 65.4 kg
[~2017-09-09 07:38] MED LIST changes: +FERR325T18 PO
[2017-09-09 08:10] VITALS: BP 136/75
[2017-09-09] MEDS ORDERED: METHOTREXATE/PF 2ML 12 MG in SODIUM CHLORIDE 0.9% 5.52 ML IT ONE (09:00)
[2017-09-09] MEDS ORDERED: LIDOCAINE 1%, 20ML ONE (09:15)
== END 2017-09-09 13:55 | disposition home or self-care (01) ==
LOC: OUT 07:38
PROVIDERS: ATTEND Internal Medicine Hematology & Oncology
DX: C83.30 Diffuse large B-cell lymphoma, unspecified site (principal); Z90.12 Acquired absence of left breast and nipple; I10 Essential (primary) hypertension
CPT/HCPCS: 62270; J9250; J3490

== ENCOUNTER 2017-09-18 02:33 | Emergency (ER) | payer OTHER ==
[~2017-09-18] VITALS: Ht 165.1 cm; Wt 64.5 kg
[2017-09-18 04:28] VITALS: BP 125/59
== END 2017-09-18 04:32 | disposition home or self-care (01) ==
LOC: ED 04:26
DX: R10.84 Generalized abdominal pain (principal); R63.0 Anorexia; I10 Essential (primary) hypertension; Z86.73 Personal history of transient ischemic attack (TIA), and cerebral infarction without residual deficits; Z85.9 Personal history of malignant neoplasm, unspecified
CPT/HCPCS: 99283

== ENCOUNTER 2017-09-24 21:18 | Emergency (ER) | payer OTHER ==
[~2017-09-24] VITALS: Ht 165.1 cm; Wt 64.8 kg
[2017-09-24 21:19] VITALS: BP 139/82
[2017-09-24] MEDS ORDERED: SODIUM CHLORIDE 0.9% 1,000ML IVBOLUS ONE ×2 (22:00→23:00)
[2017-09-24] MEDS ORDERED: SODIUM CHLORIDE FLUSH 10ML SYR IVF ONE (22:00)
[2017-09-24 22:29] LABS: ASPARTATE AMINO TRANSFERASE 14 U/L (15-37); BLOOD UREA NITROGEN 14 mg/dL (7-18)
[2017-09-24 22:30] LABS: HEMATOCRIT 27.2 % (34.6-47.8); HEMOGLOBIN 9.3 g/dL (11.7-16.4); WHITE BLOOD COUNT 5.9 x10^3/uL (3.4-10)
[2017-09-24 22:50] LABS: DIFF TOTAL CELLS COUNTED 100 CELL DIFF
[2017-09-24 22:59] LABS: VERIFY COUNTS? YES
[2017-09-24 23:00] LABS: ANISOCYTOSIS 1+
[2017-09-24 23:01] LABS: OVALOCYTES 1+; POLYCHROMASIA 1+; TARGET CELLS 1+
== END 2017-09-25 00:01 | disposition home or self-care (01) ==
LOC: ED 21:50
DX: E86.0 Dehydration (principal); C85.90 Non-Hodgkin lymphoma, unspecified, unspecified site; Z51.11 Encounter for antineoplastic chemotherapy; E87.1 Hypo-osmolality and hyponatremia; I10 Essential (primary) hypertension; Z86.73 Personal history of transient ischemic attack (TIA), and cerebral infarction without residual deficits; E78.5 Hyperlipidemia, unspecified
CPT/HCPCS: 36415; 80053; 85025; 93005; 96360; 96361; 99285; J7030

== ENCOUNTER 2017-11-05 07:38 | Day surgery (SDC) | payer OTHER ==
[~2017-11-05] VITALS: Ht 165.1 cm; Wt 65.0 kg
[~2017-11-05 07:38] MED LIST changes: +BENZ-17 PO; -BENZ100C17 PO; +POTA20TA6 PO
[2017-11-05 08:20] VITALS: BP 147/98
[2017-11-05] MEDS ORDERED: METHOTREXATE/PF 2ML 12 MG in SODIUM CHLORIDE 0.9% 5.52 ML IT ONE (09:00)
== END 2017-11-05 13:57 ==
LOC: OUT 07:38
PROVIDERS: ATTEND Internal Medicine Hematology & Oncology
DX: Z51.11 Encounter for antineoplastic chemotherapy (principal); C83.30 Diffuse large B-cell lymphoma, unspecified site; I10 Essential (primary) hypertension
CPT/HCPCS: 62270; J9250

== ENCOUNTER 2017-12-03 08:51 | Day surgery (SDC) | payer OTHER ==
[~2017-12-03] VITALS: Ht 165.1 cm; Wt 69.6 kg
[2017-12-03] MEDS ORDERED: LIDOCAINE 1%, 10ML ONE (09:11)
[2017-12-03 09:16] VITALS: BP 149/76
[2017-12-03] MEDS ORDERED: AMLO5TAB4 PO (09:24)
[2017-12-03] MEDS ORDERED: SODIUM CHLORIDE 0.9% 500 ML IV SCH (09:30)
[2017-12-03] MEDS ORDERED: METHOTREXATE/PF 2ML 12 MG in SODIUM CHLORIDE 0.9% 5.52 ML IT ONE (09:30)
== END 2017-12-03 14:00 ==
LOC: OUT 08:51
PROVIDERS: ATTEND Internal Medicine Hematology & Oncology
DX: C83.30 Diffuse large B-cell lymphoma, unspecified site (principal); I10 Essential (primary) hypertension; Z90.12 Acquired absence of left breast and nipple
CPT/HCPCS: 62270; J3490; J7030

== ENCOUNTER → 2018-01-01 | Outpatient (CLI) | payer OTHER ==
[~2018-01-01] MED LIST changes: -FERR-36 PO; +FERR-51 PO
== END | disposition home or self-care (01) ==
LOC: PETCFH 13:13
PROVIDERS: ATTEND Internal Medicine Hematology & Oncology
DX: C83.30 Diffuse large B-cell lymphoma, unspecified site (principal); K80.20 Calculus of gallbladder without cholecystitis without obstruction
CPT/HCPCS: 78815; A9552

== ENCOUNTER → 2018-01-21 | Outpatient (CLI) | payer OTHER | LOC: RAD 10:07 | PROVIDERS: ATTEND Internal Medicine Hematology & Oncology | DX: Z02.9 Encounter for administrative examinations, unspecified (principal) ==

== ENCOUNTER 2018-01-22 10:27 | Day surgery (SDC) | payer OTHER ==
[~2018-01-22] VITALS: Ht 165.1 cm; Wt 72.8 kg
[2018-01-22] MEDS ORDERED: SODIUM CHLORIDE 0.9% 1,000 ML IV SCH (11:30)
[2018-01-22 11:41] VITALS: BP 144/88
[2018-01-22] MEDS ORDERED: LIDOCAINE 1%, 20ML ONE (11:48)
[2018-01-22] MEDS ORDERED: FLUMAZENIL 0.1 MG/1 ML, 5ML ONE (11:50)
[2018-01-22] MEDS ORDERED: FENTANYL PF 100 MCG/2ML ONE (11:50)
[2018-01-22] MEDS ORDERED: MIDAZOLAM 1 MG/ML, 2ML ONE ×2 (11:50)
[2018-01-22] MEDS ORDERED: NALOXONE 1 MG/ML, 2ML ONE (11:51)
== END 2018-01-22 14:45 | disposition home or self-care (01) ==
LOC: OUT 10:27
PROVIDERS: ATTEND Internal Medicine Hematology & Oncology
DX: Z45.2 Encounter for adjustment and management of vascular access device (principal); C83.30 Diffuse large B-cell lymphoma, unspecified site; I10 Essential (primary) hypertension; Z90.12 Acquired absence of left breast and nipple
CPT/HCPCS: 36590; 77001; 99156; 99157; J2250; J3010; J3490; J7030; J2310

== ENCOUNTER 2018-03-19 22:38 | Emergency (ER) | payer OTHER ==
[~2018-03-19] VITALS: Ht 165.1 cm; Wt 73.4 kg
[2018-03-19 23:38] LABS: BASOPHILS # (AUTO) 0.06 x10^3/uL (0-0.1); BASOPHILS % (AUTO) 1 % (0-1); EOSINOPHILS # (AUTO) 0.73 x10^3/uL (0-0.4); EOSINOPHILS % (AUTO) 12 % (1-7); LYMPHOCYTES # (AUTO) 2.83 x10^3/uL (1-3.4); LYMPHOCYTES % (AUTO) 46 % (22-44); MD NO; MEAN CORPUSCULAR HEMOGLOBIN 33.7 pg (27.0-34.8); MEAN CORPUSCULAR HGB CONC 34.5 g/dL (32.4-35.8); MEAN CORPUSCULAR VOLUME 97.7 fL (80-100); MEAN PLATELET VOLUME 7.1 fL (7.4-10.4); MONOCYTES # (AUTO) 0.93 x10^3/uL (0.2-0.8); MONOCYTES % (AUTO) 15 % (2-9); NEUTROPHILS # (AUTO) 1.62 x10^3/uL (1.8-6.8); NEUTROPHILS % (AUTO) 26 % (42-75); PLATELET COUNT 242 x10^3/uL (130-400); RED BLOOD COUNT 3.37 x10^6/uL (3.82-5.3); RED CELL DISTRIBUTION WIDTH 14.6 % (9.6-15.2)
[2018-03-20 00:01] LABS: ALANINE AMINOTRANSFERASE 25 U/L (12-78); ALBUMIN 3.8 g/dL (3.4-5.0); ANION GAP 9 mmol/L (5-15); CHLORIDE 106 mmol/L (98-107); CREATININE 0.79 mg/dL (0.55-1.02)
[2018-03-20 00:04] LABS: ALKALINE PHOSPHATASE 123 U/L (45-117); BILIRUBIN,TOTAL 0.6 mg/dL (0.2-1.0); TOTAL PROTEIN 6.8 g/dL (6.4-8.2)
[2018-03-20 00:45] LABS: MICROSCOPIC NOT IND
[2018-03-20 01:39] LABS: CULTURE INDICATED? NO
[2018-03-20 01:45] VITALS: BP 140/79
== END 2018-03-20 02:09 | disposition home or self-care (01) ==
LOC: ED 23:59
DX: R10.11 Right upper quadrant pain (principal); B02.29 Other postherpetic nervous system involvement; E78.5 Hyperlipidemia, unspecified; I10 Essential (primary) hypertension; E87.1 Hypo-osmolality and hyponatremia
CPT/HCPCS: 36415; 76700; 80053; 81003; 83690; 85025; 99285

== ENCOUNTER 2018-05-19 04:27 | Emergency (ER) | payer OTHER ==
[~2018-05-19] VITALS: Ht 165.1 cm; Wt 67.2 kg
[2018-05-19 04:29] VITALS: BP 106/69
[2018-05-19] MEDS ORDERED: SODIUM CHLORIDE 0.9% 1,000ML IVBOLUS ONE (05:30)
[2018-05-19] MEDS ORDERED: SODIUM CHLORIDE FLUSH 10ML SYR IVF ONE (05:30)
[2018-05-19] MEDS ORDERED: MORPHINE SULFATE 4 MG/ML, 1ML IVPush PRN (05:30)
[2018-05-19 05:32] LABS: BASOPHILS # (AUTO) 0.02 x10^3/uL (0-0.1); BASOPHILS % (AUTO) 0 % (0-1); EOSINOPHILS # (AUTO) 0.28 x10^3/uL (0-0.4); EOSINOPHILS % (AUTO) 5 % (1-7); LYMPHOCYTES # (AUTO) 1.13 x10^3/uL (1-3.4); LYMPHOCYTES % (AUTO) 21 % (22-44); MD NO; MEAN CORPUSCULAR HEMOGLOBIN 32.3 pg (27.0-34.8); MEAN CORPUSCULAR HGB CONC 33.7 g/dL (32.4-35.8); MEAN PLATELET VOLUME 7.3 fL (7.4-10.4); MONOCYTES # (AUTO) 0.47 x10^3/uL (0.2-0.8); MONOCYTES % (AUTO) 9 % (2-9); NEUTROPHILS # (AUTO) 3.42 x10^3/uL (1.8-6.8); NEUTROPHILS % (AUTO) 64 % (42-75); PLATELET COUNT 225 x10^3/uL (130-400); RED BLOOD COUNT 3.81 x10^6/uL (3.82-5.3); RED CELL DISTRIBUTION WIDTH 14.6 % (9.6-15.2)
[2018-05-19 05:36] LABS: INTERNATIONAL NORMALIZED RATIO 1.04 (0.93-1.1); PROTHROMBIN TIME 10.7 Seconds (9.6-11.5)
[2018-05-19 05:43] LABS: ALBUMIN 3.5 g/dL (3.4-5.0); ANION GAP 8 mmol/L (5-15); CALCIUM 9.2 mg/dL (8.5-10.1); CHLORIDE 103 mmol/L (98-107)
[2018-05-19 05:47] LABS: ALANINE AMINOTRANSFERASE 36 U/L (12-78); ALKALINE PHOSPHATASE 116 U/L (45-117); BILIRUBIN,TOTAL 1.2 mg/dL (0.2-1.0); CREATININE 0.84 mg/dL (0.55-1.02); TOTAL PROTEIN 6.6 g/dL (6.4-8.2)
[2018-05-19] MEDS ORDERED: MORPHINE SULFATE 4 MG/ML, 1ML ONE (06:44)
[2018-05-19 06:45] LABS: MICROSCOPIC AUTO
[2018-05-19 06:46] LABS: CULTURE INDICATED? YES
== END 2018-05-19 07:39 | disposition home or self-care (01) ==
LOC: ED 06:20
DX: K59.00 Constipation, unspecified (principal); E87.6 Hypokalemia; I10 Essential (primary) hypertension; E78.5 Hyperlipidemia, unspecified
CPT/HCPCS: 36415; 74021; 80053; 81001; 83690; 85025; 85610; 87086; 93005; 99285; J7030

== ENCOUNTER → 2018-07-13 | Outpatient (CLI) | payer OTHER ==
[~2018-07-13] MED LIST changes: +OMNIPAQUE 350 MG/ML, 100ML BOTTLE ONE
== END | disposition home or self-care (01) ==
LOC: CFH 11:28
PROVIDERS: ATTEND Internal Medicine Hematology & Oncology
DX: C83.30 Diffuse large B-cell lymphoma, unspecified site (principal); J98.4 Other disorders of lung; N28.1 Cyst of kidney, acquired; Z90.49 Acquired absence of other specified parts of digestive tract
CPT/HCPCS: 71260; 74177; 82565; Q9967

== ENCOUNTER → 2019-01-27 | Outpatient (CLI) | payer OTHER ==
[~2019-01-27] MED LIST changes: -ASPI-621 PO; +ASPI81TA45 PO; +LOSA25TA25 PO; -LOSA25TA5 PO
[2019-01-27 12:33] LABS: CREATININE 0.77 mg/dL (0.55-1.02)
== END | disposition home or self-care (01) ==
LOC: RAD 11:46
PROVIDERS: ATTEND Internal Medicine Hematology & Oncology
DX: M48.54XA Collapsed vertebra, not elsewhere classified, thoracic region, initial encounter for fracture (principal); E04.2 Nontoxic multinodular goiter; R91.1 Solitary pulmonary nodule; D25.9 Leiomyoma of uterus, unspecified; N28.1 Cyst of kidney, acquired; C83.30 Diffuse large B-cell lymphoma, unspecified site
CPT/HCPCS: 36415; 71260; 74177; 82565; Q9967

== ENCOUNTER 2019-07-19 12:22 | Outpatient (CLI) | payer OTHER | END 2019-07-19 23:59 | disposition home or self-care (01) | LOC: CFH 12:22 | PROVIDERS: ATTEND Internal Medicine Hematology & Oncology | DX: C83.30 Diffuse large B-cell lymphoma, unspecified site (principal); R91.1 Solitary pulmonary nodule; S22.089A Unspecified fracture of T11-T12 vertebra, initial encounter for closed fracture; X58.XXXA Exposure to other specified factors, initial encounter; Y93.89 Activity, other specified; Y92.89 Other specified places as the place of occurrence of the external cause; Y99.8 Other external cause status | CPT/HCPCS: 71260; 74177; 82565; Q9967 ==

== ENCOUNTER → 2020-04-14 | Outpatient (CLI) | payer OTHER ==
[~2020-04-14] MED LIST changes: -MEGE400O2 PO; +MEGE400O6 PO; +SIMV10TA18 PO; -SIMV10TA3 PO
== END | disposition home or self-care (01) ==
LOC: CFH 12:44
PROVIDERS: ATTEND Internal Medicine Hematology & Oncology
DX: Z51.11 Encounter for antineoplastic chemotherapy (principal); C83.30 Diffuse large B-cell lymphoma, unspecified site; D69.59 Other secondary thrombocytopenia; D25.9 Leiomyoma of uterus, unspecified; S22.080G Wedge compression fracture of T11-T12 vertebra, subsequent encounter for fracture with delayed healing; T82.898A Other specified complication of vascular prosthetic devices, implants and grafts, initial encounter; N85.2 Hypertrophy of uterus; I51.7 Cardiomegaly; R91.1 Solitary pulmonary nodule; E04.2 Nontoxic multinodular goiter; M85.88 Other specified disorders of bone density and structure, other site; Y83.8 Other surgical procedures as the cause of abnormal reaction of the patient, or of later complication, without mention of misadventure at the time of the procedure; Y92.89 Other specified places as the place of occurrence of the external cause; Z90.49 Acquired absence of other specified parts of digestive tract
CPT/HCPCS: 71260; 74177; Q9967

== ENCOUNTER → 2021-03-15 | Outpatient (CLI) | payer OTHER ==
[~2021-03-15] MED LIST changes: +MULT-449 PO; -MULT1TAB60 PO
== END | disposition home or self-care (01) ==
LOC: CFH 08:11
PROVIDERS: ATTEND Internal Medicine Hematology & Oncology
DX: S22.080G Wedge compression fracture of T11-T12 vertebra, subsequent encounter for fracture with delayed healing (principal); D25.9 Leiomyoma of uterus, unspecified; N85.2 Hypertrophy of uterus; N28.1 Cyst of kidney, acquired; C83.30 Diffuse large B-cell lymphoma, unspecified site; D69.59 Other secondary thrombocytopenia; X58.XXXD Exposure to other specified factors, subsequent encounter; Z90.49 Acquired absence of other specified parts of digestive tract
CPT/HCPCS: 71260; 74177; 82565; Q9967